=== PATIENT | male | born 1990 | race Caucasian/White ===

== ENCOUNTER 2024-11-05 09:53 | Emergency (ER) | payer OTHER, SELFPAY ==
[2024-11-05 10:42] VITALS: BP 110/69; PULSE 73; RESP 16; TEMP 36.6; O2SAT 100; BMI 24.8
--- NOTE | 2024-11-05 11:45 | ED_ITS ---
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 This has been going on about 10 years. He said he woke this morning with severe spasm like pain in the right medial trapezius and periscapular medial musculature. No difficulty breathing denies pleuritic pain. He smokes cigarettes no history of pulmonary disease diagnosed. No fall injury blunt trauma. Pain was slightly worse with palpation and ab duction of the shoulder. No paresthesias Related Data Previous Rx's ?Medication ?Instructions ?Recorded methocarbamol 750 mg tablet 750 mg PO Q8H PRN spasm #1 0 tabs 11/05/24 Allergies Allergy/AdvReac Type Severity Reaction Status Date / Time No Known Allergies Allergy Verified 11/05/24 10:42 [facility] Social History Social History Smoked in Last 30 Days: Yes Use of substances other than those prescribed or required for medical reasons: No Advance Directives: No Advance Directives Information Provided: Yes Do you have a plan to hurt others: No Plan Physical Exam Vital Signs: Vital Signs: Last Vital Signs Temp 97.9 F 11/05/24 13:00 Pulse 63 11/05/24 13:00 Resp 18 11/05/24 13:00 BP 106/68 11/05/24 13:00 Pulse Ox 100 11/05/24 13:00 O2 Del Method Room Air 11/05/24 13:00 BMI result Body Mass Index 24.8 Const: Other: EXAM: Gen: Alert, appears in significant pain Head: Atraumatic Eyes: Anicteric, Normal conjunctiva. ENT: Moist mucosa, no pallor. ? Neck: Supple. Skin: ?No observable rash or bruising on exposed or examined skin Respiratory: Breathing comfortably, No distress.Clear to auscultation bilaterally, symmetric chest expansion, No wheeze, rales, ronchi. Cardiovascular: Regular rate and rhythm. No murmurs or rub. Well perfused periphery, warm extremities. No edema. ? Neuro: Alert. Gross movement of all extremities intact. ? Psych: Calm. Cooperative. MSK: No grossly visible deformity. Acute tenderness with palpable spasm medial periscapular muscle right. No midline thoracic or cervical tenderness. No bruising, crepitus. Pain worse with ab duction and rotation of the right shoulder. Right upper extremity neurovascularly intact unremarkable atraumatic. Vital signs: See flowsheet Medications Administered Discontinued Medications Generic Name Dose Route Start Last Admin Trade Name Vidalq PRN Reason Stop Dose Admin Acetaminophen 975 mg 11/05/24 11:41 11/05/24 11:50 Acetaminophen 325 Mg Tablet PO 11/05/24 11:42 975 mg ONCE ONE Administration Diazepam 5 mg 11/05/24 11:41 11/05/24 11:50 Diazepam 5 Mg Tablet PO 11/05/24 11:42 5 mg ONCE ONE Administration Ketorolac Tromethamine 30 mg 11/05/24 11:41 11/05/24 11:51 Ketorolac Tromethamine 30 Mg/Ml Vial IM 11/05/24 11:42 30 mg ONCE ONE Administration Lidocaine 1 patch 11/05/24 11:41 11/05/24 11:50 Lidocaine 4 % Patch Adh..Patch TRANSDERMA 11/05/24 11:42 1 patch ONCE ONE Administration Protocol Medical Decision Making Medical Decision Making MDM Narrative: 34-year-old male with right medial back pain acute on chronic. Consistent with spasm. Point of care ultrasound excludes pneumothorax. Palpable muscle spasm. No injury no lesions or vesicles to suggest shingles. Patient had some modest relief with multimodal analgesia in the ED. Differential Diagnosis Muscle strain, muscle spasm, tension, pneumothorax less likely Procedures Procedure Narrative Procedure Narrative: EMERGENCY ULTRASOUND INTERPRETATION-Point of Care Thoracic: IMPRESSION: NO FOCAL CONSILDATION, NO SUGGESTION OF PATHOLOGIC B LINES, OR EFFUSION. NO SUGGESTION OF PNEUMOTHORAX ON VISUALIZED PORTIONS OF THE CHEST Indication: Dyspnea Findings: Right Pleural 2ICS: ?POSITIVE SLIDING, No B Lines or Consolidation Right PLAPS: ?No effusion Performed by: Gabriel Banegas MD ? Images were stored CPT: [id number]] Discharge Plan Discharge Clinical Impression: Spasm of right trapezius muscle Patient Disposition: Home, Self-Care Instructions: Muscle Spasm (ED), Back Pain (ED) Additional Instructions: DISCHARGE DIAGNOSES: Spasm of the back musculature HISTORY OF PRESENTATION: Acute on chronic pain with spasm EMERGENCY DEPARTMENT COURSE,TESTS, TREATMENTS: While in the ED today you had an ultrasound which ruled out collapsed lung on the right side. Your examination was consistent with muscle spasm you were given oral Valium a muscle relaxant as well as Tylenol an injectable steroid and a topical lidocaine patch DISCHARGE MEDICATIONS: We prescribed methocarbamol and muscle relaxant use caution and do not drive after you take this FOLLOW-UP: ?Call your primary or general physician soon as possible to discuss your symptoms, your ED visit and to discuss follow up plans Call your PCP for follow up INSTRUCTIONS ?& RETURN PRECAUTIONS: If any symptoms change first call your primary physician, if it is after-hours your primary doctors office should have a provider outbound sales professional you can speak with. If the symptoms are severe or very concerning to you then call 911 or return to the ED. Warm bath with Epsom salts twice a day. Massage can help. Heating pad which you can buy [id number]. Lidocaine patches which you can buy [id number], ibuprofen every 6 hours for the next 2-3 days Gabriel Banegas MD Emergency Physician [facility] Prescriptions: New methocarbamol 750 mg tablet 750 mg PO Q8H PRN (Reason: spasm) Qty: 10 0RF Interventions: ED Discharge Assessment Last Done: 11/05/24 13:00 Discharge Date/Time: 11/05/24 13:01 Print Language: Polish
[2024-11-05] MEDS: Lidocaine 4 % Patch ADH..PATCH 1 PATCH TRANSDERMA (11:50)
[2024-11-05] MEDS: Acetaminophen 325 MG TABLET 975 MG PO (11:50)
[2024-11-05] MEDS: diazePAM 5 MG TABLET PO (11:50)
[2024-11-05] MEDS: Ketorolac Tromethamine 30 MG/ML VIAL IM (11:51)
[2024-11-05 12:40] VITALS: BP 102/68; PULSE 68; RESP 12; TEMP 36.6; O2SAT 98
[2024-11-05 13:00] VITALS: BP 106/68; PULSE 63; RESP 18; TEMP 36.6; O2SAT 100
== END 2024-11-05 13:01 | disposition home or self-care (01) ==
PROVIDERS: Emergency Provider Emergency Medicine
DX: M62.830 Muscle spasm of back (principal)
CPT/HCPCS: 96372; 99284; J1885

== ENCOUNTER 2024-11-07 05:22 | Emergency (ER) | payer OTHER, SELFPAY ==
[2024-11-07 05:28] VITALS: BP 115/79; PULSE 89; RESP 18; TEMP 36.8; O2SAT 94; BMI 23.4
[2024-11-07 07:25] VITALS: BP 105/55; PULSE 75; RESP 18; TEMP 36.4; O2SAT 98
--- NOTE | 2024-11-07 08:02 | ED_ITS ---
HPI - General Adult General Chief complaint: Back Pain/Injury Stated complaint: upper right side back pain Time Seen by Provider: 11/07/24 08:02 Source: patient Mode of arrival: ambulatory Limitations: no limitations History of Present Illness ED Provider: Asha Marcum PA-C HPI narrative: Patient is a 34 year old assigned male at with a history of tobacco use presenting to the emergency department today with continued upper back pain. 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 Patient states that he was seen on 11/05/2024 for this pain and given a steroid injection, lidocaine patch, toradol, and muscle relaxers which took the edge off but didn't completely resolve the pain. Patient denies any dizziness, lightheadedness, abdominal pain, nausea, vomiting, fever, chills, blurry vision, double vision, loss of vision, chest pain, difficulty breathing, shortness of breath, night sweats, pain with urination, increased urinary frequency, increased urinary urgency, blood in his urine or stool, syncope or a near syncopal episode, recent trauma or falls, bowel incontinence, bladder incontinence, or any other complaints at this time. Onset (ago): day(s) Location: back Relieving factors: none Exacerbating factors: none Associated symptoms: denies other symptoms Treatments prior to arrival: other (Muscle relaxers at home - no improvement) Related Data Previous Rx's ?Medication ?Instructions ?Recorded methocarbamol 750 mg tablet 750 mg PO Q8H PRN spasm #1 0 tabs 11/05/24 prednisone 20 mg tablet See Rx Instructions .Route 0 11/07/24 .COMPLEX 9 days #18 tabs Allergies Allergy/AdvReac Type Severity Reaction Status Date / Time No Known Allergies Allergy Verified 11/07/24 05:31 Review of Systems 2 Constitutional: Constitutional: Reports no additional constitutional complaints, Denies chills, Denies fever(s) and Denies night sweats Eyes: Eyes: Reports no additional eye complaints, Denies blurry vision, Denies change in vision, Denies diplopia, Denies eye discharge, Denies loss of vision and Denies eye pain ENT: Denies dizziness Cardiovascular: Cardiovascular: Reports no additional cardiovascular complaints, Denies chest pain, Denies lightheadedness, Denies Loss of Consciousness and Denies dyspnea Respiratory: Respiratory: Reports no additional respiratory complaints and Denies dyspnea Gastrointestinal: Gastrointestinal: Reports no additional gastrointestinal complaints, Denies abdominal pain, Denies melena, Denies hematochezia, Denies change in bowel habits and Denies change in stool character Genitourinary: Genitourinary: Reports no additional male genitourinary complaints, Denies hematuria, Denies oliguria, Denies difficulty urinating, Denies dysuria, Denies urinary frequency, Denies urinary hesitancy, Denies urinary incontinence and Denies urinary urgency Musculoskeletal: Musculoskeletal: Reports no additional musculoskeletal complaints, Reports back pain, Denies numbness and Denies tingling Neurologic: Denies dizziness, Denies loss of vision, Denies numbness and Denies tingling Psychiatric: Psychiatric: Reports no additional psychiatric complaints Endocrine: Endocrine: Reports no additional endocrine complaints Hematologic/Lymphatic: Hematologic/Lymphatic: Reports no additional hematologic/lymphatic complaints Allergic/Immunologic: Allergic/Immunologic: Reports no additional allergic/immunologic complaints PMFSH Past Medical History Attestation statement: The following information was validated with the patient. Source: old records reviewed and nursing notes reviewed Social History Social History Smoked in Last 30 Days: No Use of substances other than those prescribed or required for medical reasons: No Advance Directives: No Do you have a plan to hurt others: No Plan Physical Exam ED Vital Signs: Vital Signs - 24 hr 11/07/24 05:28 11/07/24 07:25 11/07/24 10:20 Temperature 98.3 F 97.6 F 98.0 F Pulse Rate 89 75 72 Respiratory Rate 18 18 18 Blood Pressure 115/79 105/55 L 112/68 Pulse Oximetry 94 98 97 Oxygen Delivery Method Room Air Room Air Room Air BMI result Body Mass Index 23.4 Const General: cooperative, no acute distress, alert and awake Nutritional Appearance: well nourished Orientation/consciousness: patient oriented x3 HENMT Head: Yes normal to inspection and Yes atraumatic Ears: hearing grossly normal bilaterally and external ears normal General nose exam: Normal external nose present, no nasal discharge noted and no epistaxis Face and sinus: Yes normal facial exam, No abrasion and No laceration Mouth: Normal oral and palatal mucosa present, no drooling and no muffled voice Eyes General: appearance normal, both eyes and all related structures Periorbital: periorbital findings normal Eyelids: Yes eyelids normal Conjunctivae: conjunctivae normal Pupils: Equal, round and reactive pupils present EOM: EOMs intact bilaterally Neck Neck: Yes normal visual inspection, Yes full ROM and Yes no lymphadenopathy Resp Effort & Inspection: normal respiratory effort and able to speak in complete sentences Back/Spine/Pelvis Back/spine/pelvis image: 2 1. tense muscle appreciated Neuro General: patient oriented x3, moves all extremities and CN's II-XI intact bilaterally Cranial nerves: Yes Equal, round and reactive pupils present Cognition (Neuro): normal cognition Extrem General: Yes normal to inspection, Yes full ROM and Yes capillary refill normal Psych Appearance: grossly normal Mental Status: mental status grossly normal Affect: normal affect Attitude: cooperative Thought process: Normal thought process present Thought content: Normal thought content present Insight: Good insight present (Psych) Medications Administered Discontinued Medications Generic Name Dose Route Start Last Admin Trade Name Freq PRN Reason Stop Dose Admin Diazepam 5 mg 11/07/24 08:09 11/07/24 08:21 Diazepam 10 Mg/2 Ml Cartridge IM 11/07/24 08:10 5 mg STAT STA Administration Oxycodone HCl 10 mg 11/07/24 08:09 11/07/24 08:21 Oxycodone Hcl Immed Release 5 Mg Tablet PO 11/07/24 08:10 10 mg ONCE ONE Administration Medical Decision Making Medical Decision Making [facility] Narrative: Patient is a 34 year old assigned male at with a history of tobacco use presenting to the emergency department today with continued upper back pain. Patient's physical exam was as noted in the physical exam portion of this note and most consistent with a muscle spasm. I explained my physical exam findings to the patient. I answered all questions asked by the patient. Patient received IM Valium and PO Oxycodone which, upon re-evaluation, he stated it helped his symptoms some. I explained to the patient that if possible, he should have the area massaged and apply heat to the area with a layer between the heat source and his skin. I stressed the importance of the patient taking his medication as directed (either prescribed or as the over the counter packaging recommends). I stressed the importance of the patient following up with his primary care provider and a spin specialist. I stressed the importance of the patient returning to the emergency department immediately if his symptoms were to worsen or if he were to develop any dizziness, shortness of breath, difficulty breathing, chest pain, blurry vision, loss of vision, nausea, vomiting, abdominal pain, fever, chills, back pain, or any other complaints. Patient verbalized agreement and understanding with this treatment plan and discharge. Differential Diagnosis Differential Diagnoses: The differential diagnosis associated with the presentation includes Muscle spasm Admission/Observation Consideration of admission/observation: Escalation of care including admission/observation considered Patient would have been admitted to the hospital had his clinical presentation warranted hospital admission. Tests considered The following testing was considered but not selected: I considered obtaining a thoracic spine XR however, the patient's current clinical presentation does not warrant this. Discharge Plan Discharge Clinical Impression: Spasm of thoracic back muscle Patient Disposition: Home, Self-Care Instructions: Muscle Spasm (ED), Back Pain (ED) Additional Instructions: Apply HEAT to the area with a layer between your skin and the heat source. If possible, massage the area. Follow up with your primary care provider and a equal opportunity specialist. Follow up with a primary care provider. Return to the emergency department immediately if your symptoms worsen or if you develop any numbness, tingling, dizziness, shortness of breath, difficulty breathing, chest pain, blurry vision, loss of vision, nausea, vomiting, abdominal pain, fever, chills, back pain, or any other complaints. L If you do not have a primary care provider - call any of the below numbers to establish and follow up with a primary care provider. [facility] Primary Care ([place]) [phone] [place] [address], [address] [facility] Primary Care ([facility]) [phone] [place] [address], [address] [facility], [address] [facility] Primary Care ([address] [place]) [phone] [place] [address], [address] [facility], [address] [facility] Primary Care ([place]) [phone] [place] [address], [address] [facility], [address] [facility] Family Medicine [phone] [address] [facility] [place], [address] Please see the information below about our Patient Portal. If you are not yet enrolled in the [facility] Patient Portal, you will receive an enrollment email invitation following your visit to any [facility] care setting. You may also self-enroll in the Patient Portal by visiting our website: [email or web address] The following information is required to access the Patient Portal: - Your [facility] Medical Record Number - Your personal home email address (must match what is in your electronic medical record, Registration staff can assist with this) - Name - Date of Capabilities of the Patient Portal: - Message some providers - View upcoming appointments - Access your health summary, medical history, and visit history - View current conditions and allergies - View procedure and lab results - View your medications, including guidelines, side effects, and precautions - Complete pre-appointment questionnaires requested by your provider - Ready summary reports of your office visits and procedures To access the Patient Portal Mobile Tico, follow these directions: - Search [facility] in the Tico Store or Mendor Store - Download the Tico - Search for [facility] - Enter your login/password Prescriptions: New prednisone 20 mg tablet See Rx Instructions .ROUTE .COMPLEX 9 Days Qty: 18 0RF Rx Instructions: 20 mg orally, Take 3 tablets for 3 days THEN; Take 2 tablets for 3 days THEN; Take 1 tablet for 3 days No Action methocarbamol 750 mg tablet 750 mg PO Q8H PRN (Reason: spasm) Qty: 10 0RF Referrals: [facility] [Provider Group, Neurosurgery] Referral Note: Call to establish and follow up with a equal opportunity specialist. [facility] [Provider Group, Sports Medicine] Referral Note: Call to establish and follow up with a equal opportunity specialist. Interventions: ED Discharge Assessment Last Done: 11/07/24 10:20 Discharge Date/Time: 11/07/24 10:00 Print Language: Mohawk
[2024-11-07] MEDS: diazePAM 10 MG/2 ML CARTRIDGE 5 MG IM (08:21)
[2024-11-07] MEDS: oxyCODONE HCl Immed Release 5 MG TABLET 10 MG PO (08:21)
[2024-11-07 10:20] VITALS: BP 112/68; PULSE 72; RESP 18; TEMP 36.7; O2SAT 97
== END 2024-11-07 10:00 | disposition home or self-care (01) ==
PROVIDERS: Emergency Provider Emergency Medicine Emergency Medical Services
DX: M62.830 Muscle spasm of back (principal); M54.6 Pain in thoracic spine
CPT/HCPCS: 96372; 99284; J3360